=== PATIENT | female | born 1980 | race Caucasian/White ===

== ENCOUNTER 2018-01-17 12:49 | Emergency (ER) | payer OTHER ==
[2018-01-17 12:58] VITALS: TEMP 97.3
--- NOTE | 2018-01-17 13:37 | EDPHY ---
H & P Stated Complaint: Passed out 3 times within 10 minutes at 1200. Time Seen by Provider: 01/17/18 13:37 HPI/ROS: CHIEF COMPLAINT: Fainted HISTORY OF PRESENT ILLNESS: This is a 37-year-old female with a history of lightheadedness. She was reportedly admitted to this hospital four years ago with a complaint of lightheadedness. She underwent a cardiac workup and was diagnosed with a patent foramen ovale. She takes an aspirin daily. Today she was eating lunch, after a run, and was sitting at the table she began to feel poorly. She reported this to her boyfriend and then slumped forward and lost muscular tone. He was able to keep her from falling out of her chair. Over the ensuing 15 min this happened 3-4 more times. He tells me that her eyes remained open throughout all of these episodes. At one point she appeared slightly rigid but he did not notice any rhythmic movement of her arms or legs, nor did he notice eye movements. She was not confused in between these episodes. Paramedics were summoned. They note a blood sugar of 88. She denies any recent illnesses. She does not currently have headache. REVIEW OF SYSTEMS: A ten point review of systems was performed and is negative with the exception of the items mentioned in the HPI. 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 She does not use tobacco products. She drinks alcohol once or twice yearly. General Appearance: Alert. Vital signs reviewed. Blood pressure 93/76. Eyes: Pupils equal and round, no conjunctival injection, no discharge. Anicteric. ENT, Mouth: Mucous membranes are moist, no oropharyngeal erythema or edema. Neck: No lymphadenopathy, supple. Respiratory: Lungs are clear to auscultation; no wheezes, rales, or rhonchi. Cardiovascular: Regular rate and rhythm; no murmur, rub, or gallop. Gastrointestinal: Abdomen is soft and nontender, no masses or organomegaly, bowel sounds normal. Skin: Warm and dry, no rashes on exposed skin, normal color. Back: Nontender to palpation over the thoracolumbar spine. No CVAT. Extremities: No lower extremity edema, no calf tenderness or swelling. Neurological: Alert and oriented. Moving all four extremities easily and equally. Cranial nerves II through XII are examined and are intact (visual acuity not tested). Strength is 5 over 5 bilaterally with testing of all major motor groups. Sensation is intact to light touch over all 4 extremities. Deep tendon reflexes are 2+ in the biceps and knees bilaterally. Gait is normal. [id number] is performed accurately. Psychiatric: Normal affect. - Personal History LMP (Females 10-55): 8-14 Days Ago Current Tetanus Diphtheria and Acellular Pertussis (TDAP): Yes - Medical/Surgical History Hx Asthma: No Hx Chronic Respiratory Disease: No Hx Diabetes: No Hx Cardiac Disease: No Hx Renal Disease: No Hx Cirrhosis: No Hx Alcoholism: No Hx HIV/AIDS: No Hx Splenectomy or Spleen Trauma: No Other PMH: Hypotension. PFO. - Social History Smoking Status: Never smoked Constitutional: Initial Vital Signs Temperature (C) 36.3 C 01/17/18 12:52 Heart Rate 66 01/17/18 12:52 Respiratory Rate 16 01/17/18 12:52 Blood Pressure 107/67 01/17/18 12:52 O2 Sat (%) 93 01/17/18 12:52 O2 Delivery Mode Room Air Allergies/Adverse Reactions: ethinyl estradiol [From Ortho Tri-Cyclen (28)] Allergy (Verified 01/17/18 12:59) norgestimate [From Ortho Tri-Cyclen (28)] Allergy (Verified 01/17/18 12:59) norgestimate-ethinyl estradiol [From Ortho Tri-Cyclen (28)] Allergy (Verified 15:15) Hives Penicillins Allergy (Verified 01/17/18 12:59) Home Medications: Medication Instructions Recorded Multivitamins [Multivitamin (*)] 1 each PO DAILY 02/19/14 Aspirin [Aspirin 81mg (OTC)] 81 mg PO DAILY #0 tab 02/21/14 Modafinil [Provigil 100 mg (RX)] 200 mg PO DAILYAC PRN #10 tab 02/22/14 Aspirin 01/17/18 Multivitamin (*) 01/17/18 Medical Decision Making - Diagnostics EKG Interpretation: 12 lead EKG is interpreted in Trace master View by emergency department physician. ED Course/Re-evaluation: 37-year-old female with what sounds like a syncopal or presyncopal episode. No evidence of cardiac arrhythmia on EKG today. CBC, chemistries, test all negative/normal with the exception of slight elevation of her white blood cell count 10.5. Neurologic exam is normal. Orthostatic vital signs are normal. She does have a history of previous similar episode and it had a cardiac evaluation at that time. This evaluation revealed a PFO. I do not feel that she needs hospitalization tonight but I am recommending follow up with primary care and Cardiology. Danger signs that should prompt her to return immediately were reviewed with the patient and her boyfriend. I have no reason to suspect dehydration, or blood loss. Differential Diagnosis: Syncope including but not limited to vasovagal syncope, arrhythmia, dehydration , and blood loss. - Data Points Laboratory Results: Laboratory Results 01/17/18 14:00 01/17/18 14:00 Departure - Departure Disposition: Home, Routine, Self-Care Clinical Impression: Syncope Qualifiers: Syncope type: vasovagal syncope Qualified Code(s): R55 - Syncope and collapse Condition: Good Instructions: Syncope (ED) Additional Instructions: Please follow up with a nurse extern. Consult Dr. Saldana for a referral. If you have another similar episode or any new and concerning symptoms, please be re-evaluated. Referrals: April Saldana MD [Primary Care Provider] - As per Instructions
--- NOTE | 2018-01-17 13:55 | CPEKG ---
Heart Rate: 65 RR Interval: 923 P-R Interval: 132 QRSD Interval: 96 QT Interval: 428 QTC Interval: 445 P [place]: 1 QRS [place]: -49 T Wave [place]: 9 EKG Severity - ABNORMAL ECG - EKG Impression: SINUS RHYTHM EKG Impression: LEFT ANTERIOR FASCICULAR BLOCK Electronically Signed By: Isatu Jaimes 17-Jan-2018 15:45:00
[2018-01-17 14:21] LABS: PLATELET COUNT 323 10^3/uL (150-400)
[2018-01-17 15:01] VITALS: PULSE 66
[2018-01-17 16:36] VITALS: BP 97/66; RESP 18; O2SAT 95
== END 2018-01-17 16:32 | disposition home or self-care (01) ==
DX: R55 Syncope and collapse (principal); Z79.82 Long term (current) use of aspirin